=== PATIENT | female | born 1940 | race Caucasian/White ===

== ENCOUNTER → 2023-07-26 | Outpatient (CLI) | payer MEDICARE, SELFPAY ==
--- NOTE | 2023-07-26 13:08 | VDUE_ITS ---
Reason For Study: Kidney failure Right Lower Arm Left Arm Proximal Radial artery diameter 2.1 x 2.0 Left Brachial artery diameter 3.4 x 3.5 mm. mm. Left Brachial artery waveform is triphasic . Right Radial artery, 106 cm/sec. Lateral Brachial vein diameter 1.9 x 2.1 mm. Right Arm Medial Brachial vein diameter 2.2 x 2.2 mm. Right Brachial artery diameter 3.7 x 3.7 mm. Die Holder Vein is present. Right Brachial artery, 137 cm/sec. Die Holder Vein measures 1.6 mm. Die Holder Vein is not present. Cephalic Vein at proximal upper arm measures Cephalic Vein at proximal upper arm measures 3.2 x 3.4 mm. 1.2 x 1.3 mm. Cephalic vein at proximal upper arm depth Cephalic Vein at mid upper arm measures 0.7 measures 10.9 mm. x 0.7 mm. Cephalic Vein at mid upper arm measures 2.9 x Cephalic Vein distal upper arm measures 0.6 3.3 mm. x 0.6 mm. Cephalic vein at mid upper arm depth measures Cephalic Vein proximal forearm measures 1.6 4.7 mm. x 1.6 mm. Cephalic Vein distal upper arm measures 2.7 x Cephalic Vein at mid forearm measures 1.1 x 2.8 mm. 1.2 mm. Cephalic vein at distal upper arm depth Cephalic Vein at distal forearm measures 1.0 measures 3.6 mm. x 1.1 mm. Cephalic Vein proximal forearm measures 2.0 x Proximal Basilic vein measures 4.2 x 4.2 mm. 2.0 mm. Mid Basilic vein measures 3.5 x 3.3 mm. Cephalic Vein at mid forearm measures 2.2 x Distal Basilic vein measures 3.7 x 4.0 mm. 2.4 mm. Cephalic Vein at distal forearm measures 2.3 x 2.3 mm. Proximal Basilic vein measures 3.1 x 3.4 mm. Proximal Basilic vein depth measures 14.8 mm. Mid Basilic vein measures 3.3 x 3.0 mm. Mid Basilic vein depth measures 12.7 mm. Distal Basilic vein measures 2.1 x 2.2 mm. Distal Basilic vein depth measures 9.9 mm. Left Lower Arm Proximal Radial artery diameter 2.3 x 2.8 mm. Proximal Radial artery waveform is triphasic . Proximal Lateral Radial vein diameter 1.2 x 1.2 mm. Proximal Medial Radial vein diameter 1.1 x 1.1 mm. Distal Radial artery diameter 2.5 x 2.5 mm. Distal Lateral Radial vein diameter 0.6 x 0.6 mm. Distal Medial Radial vein diameter 0.8 x 0.8 mm. Proximal Ulnar artery diameter 2.5 x 3.0 mm. Proximal Ulnar artery waveform is triphasic . Proximal Lateral Ulnar vein diameter 2.0 x 3.4 mm. Proximal Medial Ulnar vein diameter 1.8 x 2.5 mm. Distal Ulnar artery diameter 1.7 x 1.9 mm. Distal Lateral Ulnar vein diameter 0.6 x 0.7 mm. Distal Medial Ulnar vein diameter 0.6 x 0.6 mm. VL/Dialysis Vein Map PRE-OP BILAT Interpretation Summary Right upper extremity cephalic vein is diminutive throughout Right upper arm basilic vein is patent and compressible. Right brachial and radial arteries have normal diameter and flow Left upper extremity cephalic vein has adequate diameter patency and compressib ility. Left upper arm basilic vein is patent and compressible Left radial and brachial arteries are normal diameter and flow Other measurements as noted Ordering Physician: Mendel Acosta Referring Physician: Amee Mueller Performed By: Patsy Rogers RVT ???
== END | disposition home or self-care (01) ==
PROVIDERS: PCP Family Medicine; Referring Provider Surgery; Visit Provider Surgery
DX: Z01.818 Encounter for other preprocedural examination (principal); N18.6 End stage renal disease
CPT/HCPCS: 93985

== ENCOUNTER → 2023-07-29 | Outpatient (CLI) | payer MEDICARE, SELFPAY ==
--- NOTE | 2023-07-29 09:35 | RAD_ITS ---
STUDY: X-RAY CHEST REASON FOR EXAM: Female, 83 years old. Wheezes and chest crackles TECHNIQUE: PA and lateral views of the chest. COMPARISON: None. FINDINGS: A right-sided double-lumen catheter seen with the tip in the right atrium. Master congestion and mild CHF. There is no demonstrated pleural abnormality. Normal size heart. Normal mediastinum and jesika. Normal visualized pulmonary arteries. Normal visualized aortic arch and descending thoracic aorta. There are diffuse degenerative changes of the visualized thoracic spine. Normal visualized ribs, clavicles, and shoulders. Hiatal hernia. RAD/Chest PA and Lateral IMPRESSION: Mesenteric congestion and mild CHF. Electronically Signed: Talon Barth MD at 10:33 [facility] ,
== END | disposition home or self-care (01) ==
LOC: RAD 09:32
PROVIDERS: PCP Family Medicine; Referring Provider Surgery; Visit Provider Surgery
DX: R05.9 Cough, unspecified (principal); R06.2 Wheezing; R09.89 Other specified symptoms and signs involving the circulatory and respiratory systems
CPT/HCPCS: 71046

== ENCOUNTER 2023-08-09 07:44 | Day surgery (SDC) | payer MEDICARE, SELFPAY ==
[2023-08-09] VITALS (22 sets, daily range): BP systolic 113–180; BP diastolic 53–85; PULSE 65–97; RESP 16–20; TEMP 36.4–37; O2SAT 85–100; BMI 28.1
[2023-08-09] MEDS: 0.9% Normal Saline (1000mL) 1,000 ML 15 ML IV (08:45)
[2023-08-09 09:07] LABS: Bedside Glucose 186 mg/dL (74-106)
--- NOTE | 2023-08-09 10:09 | PCM.HP.BLA ---
History and Physical Date of Admission: 08/09/23 Allergies Food Allergies: Uncoded Allergy (Mild, Verified 07/29/23 08:51) Other Medications aspirin 81 mg chewable tablet PO 07/29/23 [History Confirmed 07/29/23] atorvastatin 40 mg tablet mg PO 07/29/23 [History Confirmed 07/29/23] bumetanide 1 mg tablet mg PO 07/29/23 [History Confirmed 07/29/23] carvedilol 25 mg tablet mg PO 07/29/23 [History Confirmed 07/29/23] cholecalciferol (vitamin D3) 125 mcg (5,000 unit) capsule 125 mcg PO .mwf 07/29/23 [History Confirmed 07/29/23] clonidine HCl 0.1 mg tablet 0.1 mg PO 07/29/23 [History Confirmed 07/29/23] colestipol 1 gram tablet g PO 07/29/23 [History Confirmed 07/29/23] gabapentin 600 mg tablet 300 mg PO BID 07/29/23 [History Confirmed 07/29/23] glucosamine 750 fd-eggpwy-ipp 2-C 30 mg-D3 1,000 unit-jonathon 1 mg tablet (Yeyobpuybvz-Zvqqtuqbaua-NGI + vitD) tab PO 07/29/23 [History Confirmed 07/29/23] hydralazine 100 mg tablet mg PO 07/29/23 [History Confirmed 07/29/23] levothyroxine 50 mcg tablet mcg PO 07/29/23 [History Confirmed 07/29/23] loratadine 10 mg tablet 10 mg PO DAILY 07/29/23 [History Confirmed 07/29/23] meclizine 12.5 mg tablet mg PO 07/29/23 [History Confirmed 07/29/23] memantine 10 mg tablet mg PO 07/29/23 [History Confirmed 07/29/23] pantoprazole 40 mg tablet,delayed release mg PO 07/29/23 [History Confirmed 07/29/23] sertraline 50 mg tablet mg PO 07/29/23 [History Confirmed 07/29/23] vitamin B complex and vitamin C no.20-folic acid 1 mg capsule ([place] Caps) cap PO 07/29/23 [History Confirmed 07/29/23] [facility] Medical History (Updated 07/29/23 @ 09:[address] Mendel Acosta MD) Depression High cholesterol Hypertension Hypothyroidism Kidney failure Surgical History (Updated 07/29/23 @ 08:49 by Alina French) History of spinal surgery S/P laparoscopic cholecystectomy Status post cataract extraction Status post hernia repair Status post right knee replacement Family History (Updated 07/29/23 @ 08:50 by Alina French) Mother Diabetes Heart disease HypertensionFather Heart disease HypertensionBrother Diabetes Heart disease HypertensionSister Heart disease Hypertension Social History (Updated 07/29/23 @ 08:50 by Alina French) Smoking Status: Never smoker alcohol intake: never HPI HPI HPI: 83-year-old female was referred by [facility] kidney valliant for surgical consultation regarding arteriovenous hemodialysis fistula creation and a written copy my surgical consult recommendations will return to them. At the [facility] and on July 26, 2023 the patient had bilateral extremity vein mapping. The right upper extremity cephalic vein is diminutive throughout. The right upper arm basilic vein is adequate The cephalic vein of the forearm is borderline diameter slightly improved in the upper arm but deeper in the upper arm. The left upper arm basilic vein is adequate. The left radial and brachial arteries are adequate. She has been on hemodialysis via right chest catheter for just over a month. She is right arm dominant. She presents to my office with any acute 2 to 3-day acute respiratory illness. Complaining of congestion and some shortness of breath. She has not notified primary care of this illness. She is to have dialysis later today. Exam Const General: cooperative, comfortable and no acute distress [facility] Head: normal to inspection Eyes General: appearance normal, both eyes and all related structures Neck Neck: normal visual inspection Chest Other: Increased AP diameter Resp Other: Wheezes noted bilaterally with dry rales right base and throughout the left lung. Right chest catheter in place Cardio Rate: regular rate Rhythm: regular rhythm GI Palpation: soft and no hepatosplenomegaly Musc Cervical Spine: normal cervical lordosis Skin General: no rashes or lesions noted Neuro General: patient alert and patient awake Extrem General: no calf tenderness Other: Left upper extremity inspected with ultrasound. Forearm cephalic vein appears to be quite small. At the antecubital space it appears to become adequate but soon after the antecubital space it becomes at least 5 mm deep if not deeper. Left upper extremity has a 2-3+ brachial pulse Assessment and Plan Assessment and Plan (1) Kidney failure: Status: Acute Qualifiers: Acute renal failure type: unspecified Chronic kidney disease stage: on chronic dialysis Renal failure chronicity: acute on chronic Qualified Code(s): N17.9 - Acute kidney failure, unspecified; N18.6 - End stage renal disease; Z99.2 - Dependence on renal dialysis Plan: 83-year-old female who is currently hemodialysis dependent via right chest catheters. She is right arm dominant. Vein mapping suggested borderline cephalic vein of the forearm and I find it to be quite small. The upper arm cephalic vein on the left appears to be adequate but it is rather deeply placed. I propose for her transposition left upper arm cephalic vein to brachial artery arteriovenous hemodialysis fistula creation and have discussed technique, benefit, risk, alternatives. Unfortunately the patient presents with an acute 2-day respiratory illness. Etiology not clear. I recommend that we obtain PA and lateral chest x-ray and obtain primary care review. I appreciate the opportunity of assisting with her surgical care Copy:Amee Mueller MD and Dr. Jonel Acosta M.D., F.A.C.S The patient on chest x-ray was noted to have some early congestive heart failure. Apparently this is common for this patient. She was treated appropriately with her hemodialysis. The patient otherwise is currently remaining stable. She has had an opportunity to ask and have questions answered. We will proceed as noted. Mendel Acosta M.D., F.A.C.S.
--- NOTE | 2023-08-09 10:25 | DCINST_ITS ---
Discharge Instructions Procedure Fistula Diet Discharge Diet: Renal Diet Activity Discharge Activity: May Not Drive (for 2-3 days or while taking narcotic pain medications.), May Shower and May Take a Tub Bath (in 5 days.) Lifting Restrictions: 5 pounds Keep extremity elevated above heart level: - (Keep arm elevated above the heart level for 3 days.) Dressing / Incision Call your doctor if your incision/area has: Continuous Slow Oozing, Sudden Increased Bleeding (apply pressure and call your doctor.), Increased Pain/ Swelling, Increased Redness and Foul Smelling Discharge Call your doctor if you observe: Fever of 101 or Higher Suture Line Care: Avoid Pulling/Pushing and Avoid Pinching/Bending Cleanse incision/area with: Keep Dressing Clean & Dry Additional Dressing/Incision Instructions:: Change or remove dressing in one day. May protect with a gauze bandaid. Follow Up Care Please Follow Up With: Mendel Acosat MD When: Call [phone] to make an appointment for suture removal and follow up in 1 week. Test Results: Test results from this visit will be discussed in further detail at your follow- up appointment, if applicable. Discharge Plan Admission Attending Provider: Mendel Acosta Primary Care Provider: MONA CAMPBELL Discharge Orders/Prescriptions Prescriptions: No Action memantine 10 mg tablet 15 mg PO DAILY Keagan Caps 1 mg capsule 1 cap PO DAILY Patient Comments: TAKE 1 CAPSULE BY MOUTH EVERY DAY meclizine 12.5 mg tablet 12.5 mg PO QHS carvedilol 25 mg tablet 25 mg PO BID bumetanide 1 mg tablet 2 mg PO DAILY clonidine HCl 0.1 mg tablet 0.2 mg PO TID colestipol 1 gram tablet 1 g PO BID Patient Comments: Take 1 (one) tablet (1 g total) by mouth 2 (two) times a day. sertraline 50 mg tablet 50 mg PO QHS pantoprazole 40 mg tablet,delayed release (DR/EC) 40 mg PO DAILY levothyroxine 50 mcg tablet 50 mcg PO QHS atorvastatin 40 mg tablet 40 mg PO DAILY hydralazine 100 mg tablet 100 mg PO TID gabapentin 600 mg tablet 300 mg PO TID Bbrjqbdo-Zeexnx-GJH with vit D 750-30-1,000-1 yg-qi-xvcj-mg tablet 1 tab PO BID cholecalciferol (vitamin D3) 125 mcg (5,000 unit) capsule 125 mcg PO TUTHSA loratadine 10 mg tablet 10 mg PO DAILY Probiotic 3 billion cell capsule 3,000 mmu cells PO DAILY Rx Instructions: administer with a meal simethicone [Gas Relief (simethicone)] 80 mg tablet,chewable 80 mg PO DAILY Referrals / Follow Up: MONA CAMPBELL MD [Primary Care Provider] - Disposition Disposition (needs filled in before D/C Order can be placed): Home, Self Care
[2023-08-09] MEDS: Cefazolin 2 GM in 0.9% Normal Saline (100mL Bag) 100 ML IV (10:28)
[2023-08-09] MEDS: Heparin Injection (Vial) 5,000 UNIT/ML VIAL 5000 UNIT (10:52)
--- NOTE | 2023-08-09 12:44 | PCM.OPRPT ---
Report of Operation Date of Procedure: 08/09/23 Pre-Operative Diagnosis: Chronic renal failure hemodialysis dependent in need of arteriovenous hemodialysis fistula Post-Operative Diagnosis: Same Surgery/Procedure Performed:: Transposition left upper arm cephalic vein to brachial artery arteriovenous hemodialysis fistula creation Description of Surgical Findings:: Timeout informed consent was obtained. 83-year-old female was taken to the operating placed upon the table underwent general anesthesia Ancef 2 g were given intravenously clean procedure the left extremity was sterilely prepped and draped. 1% lidocaine mixed 50-50 with 0.5% Marcaine was used as local anesthetic. Throughout the procedure approximate 25 cc was used. Where needed local was instilled ultrasound was performed mapping the upper arm cephalic vein a shoulder area was made in a stepwise fashion although being 1 complete incision. Sharp dissection carried down through to the cephalic vein side branches were secured with 4-0 Vicryl ligatures. Hemoclips. The vein branch nicely at the antecubital space was dissected free up to the shoulder. Because of the positioning of the vein and fibrotic down the more medial aspect of the incision I felt that it would be too much on the volar aspect of the arm so I created the tunnel on the more dorsal aspect of the incision and then crossing underneath the incision to get to the brachial artery. I measured the length we marked the anterior surface of the vein sharp blunt sections used to identify the brachial artery circumferential control was obtained with Vesseloops. The vein was then ligated distally with hemoclips it was spatulated at the site using a curved 6 mm Superior-Angus tunneler I tunneled from the shoulder to the distal upper arm patient received 6000 units of heparin prophylactic limbs were placed on the brachial artery and 11 blade was used to make arteriotomy which was extended with Richardson scissors and decide venous to arterial anastomosis created running 7-0 Prolene widely patent anastomosis was achieved good positional lie. The patient had a viable hand with good Doppler signals at the palmar arch radial and ulnar sites. The fistula itself also appeared to be functioning well. The wound was then closed in layers with deep sutures of 3-0 Vicryl. Skin edges approximated running subicular 4-0 Monocryl. Steri-Strips Telfa soft roll and Luis Felipe wrap applied. Sponge and instrument and needle counts were reported to discharge to be correct. Specimens none. Drains none. Blood loss 50 cc. Patient was taken the recovery area in satisfied condition without apparent complication Mendel D. Cebul, M.D., F.A.C.S. Surgeon: Mendel Acosta Type of Anesthesia: General and Local Anesthesiologist: Travis Cast
[2023-08-09] MEDS: Lidocaine 1% (20 ml mdv) 20 ML Vial (12:53)
[2023-08-09] MEDS: Bupivacaine 0.5% PF 10 ML VIAL (12:53)
[2023-08-09 13:32] LABS: Bedside Glucose 172 mg/dL (74-106)
--- NOTE | 2023-08-09 14:50 | RAD_ITS ---
STUDY: X-RAY CHEST REASON FOR EXAM: Female, 83 years old. POST OP TECHNIQUE: AP and lateral views of the chest. COMPARISON: Comparison is made with prior study dated July 29, 2023. FINDINGS: A right-sided double-lumen catheter is seen with the tip in the right atrium. EKG electrodes are seen. Minimal increased markings at the lung bases suggestive of atelectasis. There is no demonstrated pleural abnormality. Normal size heart. Normal mediastinum and jesika. Normal visualized pulmonary arteries. There is atherosclerotic calcification of the aortic arch with tortuosity. There are diffuse degenerative changes of the visualized thoracic spine. Increased kyphosis. Normal visualized ribs, clavicles, and shoulders. There is no demonstrated abnormality of the visualized soft tissue structures of the upper abdomen. RAD/Chest PA and Lateral IMPRESSION: Mild degree of increased markings at the lung bases suggestive of bibasilar atelectasis. Electronically Signed: Talon Barth MD at 15:35 EST ,
--- NOTE | 2023-08-09 16:36 | SUR.PHASEII ---
PATIENT RECEIVED O2 TANK THAT IS COMPLETELY FULL. THIS NURSE SHOWED HER DAUGHTERS HOW TO USE WITH THE [facility]. THEY WILL CALL [facility] TO ARRANGE TRANSPORTATION OF A CONCENTRATOR TO HER HOUSE.
== END 2023-08-09 16:38 | disposition home or self-care (01) ==
LOC: SDC 07:46 → AC 07:47
PROVIDERS: PCP Family Medicine; Referring Provider Surgery; Visit Provider Surgery
PROC: (CPT 36821; principal; 2023-08-09 10:00)
DX: N18.6 End stage renal disease (principal); N17.9 Acute kidney failure, unspecified; Z99.2 Dependence on renal dialysis; E11.22 Type 2 diabetes mellitus with diabetic chronic kidney disease; I12.0 Hypertensive chronic kidney disease with stage 5 chronic kidney disease or end stage renal disease; E78.00 Pure hypercholesterolemia, unspecified; Z79.82 Long term (current) use of aspirin; Z79.899 Other long term (current) drug therapy; Z79.890 Hormone replacement therapy; E03.9 Hypothyroidism, unspecified
CPT/HCPCS: 36821; 01844; 71046; 82962; 94640; A4648; J7030; J2405

== ENCOUNTER 2023-12-03 09:13 | Day surgery (SDC) | payer MEDICARE, SELFPAY ==
--- NOTE | 2023-12-03 09:44 | PCM.HP.BLA ---
History and Physical Date of Admission: 12/03/23 The patient was previously scheduled for this fistulogram but she canceled it. This is a rescheduling of the procedure. Intake Visit Reasons: Clot Aspiration/Hard lump in access Chief Complaint: clot aspiration/hard lump in access Is patient in pain?: No Allergies Food Allergies: Uncoded Allergy (Mild, Verified 11/03/23 14:01) Other Medications atorvastatin 40 mg tablet 40 mg PO DAILY 07/29/23 [History Confirmed 11/03/23] bumetanide 1 mg tablet 2 mg PO DAILY 07/29/23 [History Confirmed 11/03/23] carvedilol 25 mg tablet 25 mg PO BID 07/29/23 [History Confirmed 11/03/23] cholecalciferol (vitamin D3) 125 mcg (5,000 unit) capsule 125 mcg PO TUTHSA 07/29/23 [History Confirmed 11/03/23] clonidine HCl 0.1 mg tablet 0.2 mg PO TID 07/29/23 [History Confirmed 11/03/23] colestipol 1 gram tablet 1 g PO BID 07/29/23 [History Confirmed 11/03/23] gabapentin 600 mg tablet 300 mg PO TID 07/29/23 [History Confirmed 11/03/23] glucosamine 750 rt-dafceo-kyb 2-C 30 mg-D3 1,000 unit-jonathon 1 mg tablet (Glggkbmhhgm-Svfxttffecz-NFC + vitD) 1 tab PO BID 07/29/23 [History Confirmed 11/03/23] hydralazine 100 mg tablet 100 mg PO TID 07/29/23 [History Confirmed 11/03/23] levothyroxine 50 mcg tablet 50 mcg PO QHS 07/29/23 [History Confirmed 11/03/23] loratadine 10 mg tablet 10 mg PO DAILY 07/29/23 [History Confirmed 11/03/23] meclizine 12.5 mg tablet 12.5 mg PO QHS 07/29/23 [History Confirmed 11/03/23] memantine 10 mg tablet 15 mg PO DAILY 07/29/23 [History Confirmed 11/03/23] pantoprazole 40 mg tablet,delayed release 40 mg PO DAILY 07/29/23 [History Confirmed 11/03/23] sertraline 50 mg tablet 50 mg PO QHS 07/29/23 [History Confirmed 11/03/23] vitamin B complex and vitamin C no.20-folic acid 1 mg capsule ([place] Caps) 1 cap PO DAILY 07/29/23 [History Confirmed 11/03/23] lactobacillus combination no.4 3 billion cell capsule (Probiotic) 3,000 mmu cells PO DAILY 07/30/23 [History Confirmed 11/03/23] simethicone 80 mg chewable tablet (Gas Relief (simethicone)) 80 mg PO DAILY 07/30/23 [History Confirmed 11/03/23] hydrocodone-acetaminophen 5-325mg 5mg-325mg 1 tab PO Q8H PRN pain 2 days #5 tabs 08/09/23 [Rx Confirmed 11/03/23] PFSH Medical History Arthritis Back pain Cardiology follow-up encounter CPAP (continuous positive airway pressure) dependence Dementia Depression Diabetes Dietary restriction Gastric reflux High cholesterol History of CHF (congestive heart failure) History of diverticulitis History of echocardiogram History of edema History of renal dialysis Hypertension Hypothyroidism Kidney failure Leg cramps Low iron Migraine headache Non-smoker Post-menopausal Shortness of breath on exertion Walker as ambulation aid Wears dentures Wears glasses Wears hearing aid Surgical History History of esophagogastroduodenoscopy (EGD) History of spinal surgery Hx of colonoscopy Hx of left cataract extraction Hx of right cataract extraction Hx of umbilical hernia repair S/P arteriovenous (AV) fistula creation S/P laparoscopic cholecystectomy Status post right knee replacement Family History Mother Diabetes Heart disease HypertensionFather Heart disease HypertensionBrother Diabetes Heart disease HypertensionSister Heart disease Hypertension Social History Smoking Status: Never smoker alcohol intake: never HPI HPI Surgical H&P: Yes HPI: Patient is an 83 y/o F I am following for problem with dialysis access. Patient's daughter is present with the patient. Patient has dementia. Daughter notes the fistula was infiltrated multiple times and has caused a small lump. Patient does have chest catheters in place. Dialysis center has been using the chest catheters due to the lump that formed at the fistula site. Patient denies any tenderness at the lump. Daughter believes the lump formed 1 week ago approximately. She notes they were just released in the middle of September to use the fistula. 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 She denies any current blood thinners. Patient performs dialysis at [facility]. She has not had any prior intervention. Exam Const General: cooperative, healthy appearing, comfortable and no acute distress [facility] Head: normal to inspection Eyes General: appearance normal, both eyes and all related structures Neck Neck: normal visual inspection Neck mass: No Resp Effort & Inspection: normal respiratory effort Auscultation: clear to auscultation bilaterally Cardio Rate: regular rate Rhythm: regular rhythm GI Inspection: normal to inspection Palpation: soft Auscultation: normal bowel sounds Musc Cervical Spine: normal cervical lordosis Skin General: no rashes or lesions noted Neuro General: no focal motor deficits and CN's II-XI intact bilaterally Extrem Other: Left upper extremity fistula- good pulse, bruit and thrill. Small palpable hematoma noted mid portion of the fistula. Assessment and Plan Assessment and Plan (1) Problem with dialysis access: Status: Acute Qualifiers: Encounter type: initial encounter Qualified Code(s): T82.898A - Other specified complication of vascular prosthetic devices, implants and grafts, initial encounter Plan: Dr. Acosta will plan to perform a non-urgent, left upper extremity fistulogram. Procedure details, risks and benefits have been explained. Patient and her daughter have had the opportunity to ask and have questions answered. Patient is not on any blood thinners. I believe it is in the patient's best interest to pursue a fistulogram to allow for the patient's tunneled chest catheter to be removed. Patient and daughter are in agreement with the plan. I have examined the patient and the H&P has been reviewed. There are no clinical changes since date of exam. Mendel Acosta M.D., F.A.C.S.
[2023-12-03 09:53] VITALS: BMI 30.5
[2023-12-03 10:00] LABS: Hematocrit 25.9 % (37-47); Hemoglobin 7.9 g/dL (12.0-15.0); Mean Corp Hgb Conc 30.5 g/dL (32-36); Mean Corpuscular Hgb 31.9 pg (27.0-32.0); Mean Corpuscular Volume 104.4 fL (81-99); Mean Platelet Vol. 9.1 fl (6.2-12.0); POSITIVE MORPHOLOGY YES; Platelet Count 184 K/mm3 (150-450); RBC Distribution Width CV 18.4 % (11.6-14.6); RBC Distribution Width SD 70.7 fl (35.1-43.9); Red Blood Count 2.48 M/mm3 (4.2-5.4); White Blood Count 8.8 K/mm3 (4.4-11.0)
[2023-12-03 10:29] LABS: Anion Gap 4 (5-15); BUN 28 mg/dL (7-18); BUN/Creat Ratio 10.8 RATIO (10-20); Calcium,Total 8.8 mg/dL (8.5-10.1); Chloride 96 mmol/L (98-107); Creatinine, Serum 2.59 mg/dL (0.55-1.02); EST Glomerular Filtration Rate 19 mL/min (>60); Est Glom Filt Rate - Afr Amer 23 mL/min (>60); Estimated Creatinine Clearance 14.22 ml/min; Glucose 190 mg/dL (74-106); Potassium 3.8 mmol/L (3.5-5.1); Sodium Level 134 mmol/L (136-145)
[2023-12-03 10:50] LABS: Scan Indicated on CBC? Y/N YES- FLAGS NOTED
[2023-12-03 10:55] LABS: Differential Comment SCANNED
--- NOTE | 2023-12-03 11:39 | PCM.OPRPT ---
Report of Operation Date of Procedure: 12/03/23 Pre-Operative Diagnosis: Diminished flow left upper arm transposed cephalic vein to brachial artery arteriovenous hemodialysis fistula Post-Operative Diagnosis: Proximal fistula high-grade venous stenosis Surgery/Procedure Performed:: Left upper extremity fistulogram with 6 x 2 Powerflex angioplasty and 6 x 2 conquest angioplasty proximal fistula Description of Surgical Findings:: Timeout informed consent was obtained. 83-year-old female was taken to the special procedures lab placed on the table. She received 50 mcg of fentanyl and 0.5 mg of Versed is intravenous sedation. Once accessed she received 2000 units of heparin. Ultrasound was used to inspect the upper arm transposed cephalic vein to brachial artery AV fistula. In the more proximal upper arm gained access using ultrasound 2% lidocaine and then retrograde with a micropuncture needle micropuncture wire wire and a 6 Portuguese short sheath dilator. Utilizing an 035 Glidewire and angled glide cath to gain access to the brachial artery proximal to the anastomosis. Isovue was used as a contrast medium. Fistulogram was obtained. This demonstrated moderate stenosis of the arterial anastomosis but a focal area approximately 10 cm from the anastomosis of high-grade venous stenosis. Placed the 6 x 2 Powerflex balloon and gently did a balloon angioplasty of the anastomosis for 2 minutes. Then remove the balloon to the area of venous stenosis. Getting that balloon to position itself was difficult as it wanted to watermelon both proximally and distally. Finally was able to get good positioning the balloon was insufflated to 15 letty of pressure with incomplete resolution. I subsequently exchanged out and placed a 6 x 2 conquest balloon. Balloon angioplasty was performed up to 35 letty of pressure and this time successful distention was achieved. I then completed the images of the upper arm demonstrating adequate central venous outflow. There was very rapid clearance of the contrast material. Balloon sheath was removed use suture of 4-0 nylon placed an additional simple suture of 4-0 nylon was placed. Hemostasis was intact. The fistula seem to have a good pulse thrill and bruit. Images demonstrate a transposed left upper arm cephalic vein to brachial artery to venous fistula with with moderate degree of proximal fissure arterial anastomotic stenosis and a focal high-grade area of 90% stenosis approximately 10 cm from the anastomosis. Subsequent to the 6 x 2 Powerflex and 6 x 2 conquest angioplasty there was resolution of the of the areas of stenosis and good central venous outflow. Contrast used 26 cc Mendel Alvarado. Cebul, M.D., F.A.C.S. Surgeon: Mendel Acosta Type of Anesthesia: IV Sedation and Local
== END 2023-12-03 12:40 | disposition home or self-care (01) ==
PROVIDERS: PCP Family Medicine; Referring Provider Surgery; Visit Provider Surgery
DX: T82.858A Stenosis of other vascular prosthetic devices, implants and grafts, initial encounter (principal); I11.0 Hypertensive heart disease with heart failure; I50.9 Heart failure, unspecified; F03.90 Unspecified dementia, unspecified severity, without behavioral disturbance, psychotic disturbance, mood disturbance, and anxiety; E11.9 Type 2 diabetes mellitus without complications; E78.00 Pure hypercholesterolemia, unspecified; Z79.899 Other long term (current) drug therapy; Z79.890 Hormone replacement therapy; Z99.2 Dependence on renal dialysis; K21.9 Gastro-esophageal reflux disease without esophagitis; Y71.8 Miscellaneous cardiovascular devices associated with adverse incidents, not elsewhere classified
CPT/HCPCS: 36415; 36902; 76937; 80048; 85027; 99152; 99153; Q9967; C1725; C1769